=== PATIENT | male | born 1960 | race Hispanic/Latino ===

== ENCOUNTER 2019-03-02 15:17 | Emergency (ER) | payer OTHER ==
[2019-03-02 16:42] LABS: BASOPHILS % (AUTO) 0.6 % (0.0-5.0); EOSINOPHILS % (AUTO) 3.4 % (0.0-8.0); HEMATOCRIT 28.9 % (42-54); LYMPHOCYTES % (AUTO) 23.5 % (21.0-51.0); MEAN CORPUSCULAR HEMOGLOBIN 29.5 pg (27.0-33.0); MEAN CORPUSCULAR HGB CONC 33.9 g/dL (32.0-36.0); MEAN CORPUSCULAR VOLUME 86.9 fL (79-99); MONOCYTES % (AUTO) 6.2 % (3.0-13.0); NEUTROPHILS % (AUTO) 66.3 % (40.0-77.0); PLATELET COUNT (AUTO) 181 K/uL (130-400); RED BLOOD CELL COUNT(AUTO) 3.32 MIL/uL (4.50-6.20); RED CELL DISTRIBUTION WIDTH 15.1 % (11.0-15.5); WHITE BLOOD COUNT (AUTO) 7.9 K/uL (4.8-10.8)
[2019-03-02 16:43] LABS: APPEARANCE,URINE CLEAR (CLEAR); BILIRUBIN,URINE NEGATIVE (NEGATIVE); COLOR,URINE YELLOW (YELLOW); GLUCOSE, URINE (UA) NEGATIVE (NEGATIVE); KETONES,URINE NEGATIVE (NEGATIVE); LEUKOCYTE ESTERASE ,URINE NEGATIVE (NEGATIVE); NITRATE,URINE NEGATIVE (NEGATIVE); OCCULT BLOOD,URINE TRACE-INTACT (NEGATIVE); PROTEIN,URINE 100 mg/dL (NEGATIVE); UROBILINOGEN,URINE 0.2 mg/dL (0.2-1.0)
[2019-03-02 16:53] LABS: RBC,URINE 0-1 /HPF (0-1); WBC,URINE 0-1 /HPF (0-1)
[2019-03-02 16:54] LABS: BACTERIA,URINE Few /HPF (None Seen); SQUAMOUS EPITHELIAL CELL,UR Rare /HPF (0-2)
[2019-03-02 16:58] LABS: ALBUMIN 3.9 g/dL (3.5-5.0); BILIRUBIN,TOTAL 0.4 mg/dL (0.2-1.0); TOTAL PROTEIN, SERUM 6.9 g/dL (6.0-8.3)
== END 2019-03-02 19:28 | disposition home or self-care (01) ==
LOC: EDH 15:17
DX: R42 Dizziness and giddiness (principal); R11.0 Nausea
CPT/HCPCS: 36415; 80053; 81001; 82550; 83690; 84484; 85025; 93005

== ENCOUNTER 2019-03-14 17:46 | Emergency (ER) | payer OTHER, MEDICARE ==
[2019-03-14] MEDS ORDERED: ACETAMINOPHEN EXTRA STRENGTH 500 MG TABLET ONE (18:05)
== END 2019-03-14 19:47 | disposition home or self-care (01) ==
LOC: EDH 17:46
DX: S53.402A Unspecified sprain of left elbow, initial encounter (principal); I10 Essential (primary) hypertension; W22.8XXA Striking against or struck by other objects, initial encounter; Y93.89 Activity, other specified; Y92.810 Car as the place of occurrence of the external cause; Y99.8 Other external cause status
CPT/HCPCS: 73080; 99282

== ENCOUNTER 2019-04-26 05:55 | Day surgery (SDC) | payer OTHER ==
[2019-04-26] VITALS (7 sets, daily range): BP systolic 99–125; BP diastolic 54–80
[~2019-04-26] VITALS: Ht 167.6 cm; Wt 81.2 kg
[~2019-04-26 05:55] MED LIST: SODIUM CHLORIDE 0.9% 1000ML 1,000 ML IV ONE
[2019-04-26] MEDS ORDERED: AMLO10TA7 PO (06:58)
[2019-04-26] MEDS ORDERED: FOLI1TAB35 PO (06:58)
[2019-04-26] MEDS ORDERED: VITA400C70 PO (06:58)
[2019-04-26] MEDS ORDERED: FERS325 PO (06:58)
[2019-04-26] MEDS ORDERED: SODI650T PO (06:58)
[2019-04-26] MEDS ORDERED: METO-391 PO (06:58)
[2019-04-26] MEDS ORDERED: CHOL100046 PO (06:58)
[2019-04-26] MEDS ORDERED: CALC0.253 PO (06:58)
[2019-04-26] MEDS ORDERED: PROPOFOL 10 MG/ML 20ML VIAL IV ONE (07:08)
== END 2019-04-26 08:45 | disposition home or self-care (01) ==
LOC: ENDO 05:55 → DAH 05:55 → ENDO 08:45
PROVIDERS: ATTEND Internal Medicine Gastroenterology
DX: Z12.11 Encounter for screening for malignant neoplasm of colon (principal); D12.5 Benign neoplasm of sigmoid colon; D12.8 Benign neoplasm of rectum; I12.0 Hypertensive chronic kidney disease with stage 5 chronic kidney disease or end stage renal disease; K57.30 Diverticulosis of large intestine without perforation or abscess without bleeding; K63.89 Other specified diseases of intestine; Z86.010 Personal history of colon polyps; N18.6 End stage renal disease; K64.9 Unspecified hemorrhoids; Z80.0 Family history of malignant neoplasm of digestive organs; Z98.890 Other specified postprocedural states; Z79.899 Other long term (current) drug therapy
CPT/HCPCS: 45380; 45385; 88305; A4606; J2704; J7030

== ENCOUNTER 2020-02-07 17:10 | Emergency (ER) | payer OTHER ==
[~2020-02-07 17:10] MED LIST changes: +AMLO10TA7 PO; +CALC0.253 PO; +CHOL100046 PO; +FERS325 PO; +FOLI1TAB35 PO; +METO-391 PO; +SODI650T PO; -SODIUM CHLORIDE 0.9% 1000ML 1,000 ML IV ONE; +VITA-164 PO
[2020-02-08] MEDS ORDERED: FOLI1TAB35 PO (21:01)
[2020-02-08] MEDS ORDERED: FERR325T22 PO (21:01)
[2020-02-08] MEDS ORDERED: CALC667C10 PO (21:01)
== END 2020-02-07 17:19 | disposition left against medical advice (07) ==
LOC: EDH 17:10
DX: Z53.29 Procedure and treatment not carried out because of patient's decision for other reasons (principal); I10 Essential (primary) hypertension

== ENCOUNTER 2020-02-07 17:33 | Emergency (ER) | payer OTHER ==
[~2020-02-07] VITALS: Ht 172.7 cm; Wt 80.3 kg
[2020-02-08] MEDS ORDERED: CALC667C10 PO (21:01)
[2020-02-08] MEDS ORDERED: FERR325T22 PO (21:01)
[2020-02-08] MEDS ORDERED: FOLI1TAB35 PO (21:01)
== END 2020-02-07 20:30 | disposition left against medical advice (07) ==
LOC: EDH 17:33 → EDHIP 17:34 → UNDOADMIN 17:34 → EDH 20:30
DX: I12.0 Hypertensive chronic kidney disease with stage 5 chronic kidney disease or end stage renal disease (principal); N18.6 End stage renal disease; Z53.29 Procedure and treatment not carried out because of patient's decision for other reasons

== ENCOUNTER 2020-02-08 12:26 | Inpatient (IN) | payer OTHER ==
[~2020-02-08] VITALS: Ht 167.6 cm; Wt 76.7 kg
[2020-02-08 14:46] LABS: BASOPHILS % (AUTO) 0.5 % (0.0-5.0); EOSINOPHILS % (AUTO) 3.9 % (0.0-8.0); HEMATOCRIT 28.8 % (42-54); LYMPHOCYTES % (AUTO) 17.7 % (21.0-51.0); MEAN CORPUSCULAR HEMOGLOBIN 27.4 pg (27.0-33.0); MEAN CORPUSCULAR HGB CONC 32.3 g/dL (32.0-36.0); NEUTROPHILS % (AUTO) 70.5 % (40.0-77.0); PLATELET COUNT (AUTO) 201 K/uL (130-400); RED BLOOD CELL COUNT(AUTO) 3.39 MIL/uL (4.50-6.20); RED CELL DISTRIBUTION WIDTH 16.6 % (11.0-15.5); WHITE BLOOD COUNT (AUTO) 8.5 K/uL (4.8-10.8)
[2020-02-08 15:38] LABS: HEMOGLOBIN A1C 5.4 % (4.0-6.0)
[2020-02-08 15:54] LABS: ALBUMIN 4.2 g/dL (3.5-5.0); BILIRUBIN,TOTAL 0.5 mg/dL (0.2-1.0); POTASSIUM 4.7 mmol/L (3.5-5.1); TOTAL PROTEIN, SERUM 7.7 g/dL (6.0-8.3)
[2020-02-08 15:57] LABS: CREATININE 17.7 mg/dL (0.5-1.5)
[2020-02-08 18:31] VITALS: BP 149/78
[2020-02-08 18:33] LABS: HEMATOCRIT 25.5 % (42-54)
[2020-02-08 18:42] LABS: HEMOGLOBIN A1C 5.5 % (4.0-6.0)
[2020-02-08 18:49] LABS: ALBUMIN 3.8 g/dL (3.5-5.0)
[2020-02-08 19:01] LABS: CREATININE 14.2 mg/dL (0.5-1.5)
[2020-02-08 19:10] LABS: % IRON SATURATION 17.9 % (30-44)
--- NOTE | 2020-02-08 19:57 | NUR ---
DIRECT ADMIT FOR SERVICES DR. VILLA FOR HEMO-DIALYSIS. CONSENT SIGNED AND DIALYSIS NURSE NOTIFIED.
[2020-02-08 20:48] VITALS: BP 127/83
[2020-02-08] MEDS ORDERED: FERR325T22 PO (21:01)
[2020-02-08] MEDS ORDERED: CALC667C10 PO (21:01)
[2020-02-08] MEDS ORDERED: FOLI1TAB35 PO (21:01)
[2020-02-08 23:59] VITALS: BP 146/75
[2020-02-09 04:18] VITALS: BP 142/81
[2020-02-09 07:00] VITALS: BP 131/85
[2020-02-09 11:00] VITALS: BP 124/75
--- NOTE | 2020-02-09 12:16 | NUR ---
CM NOTE/IA/DALE [facility] MEET WITH PATIENT IN ROOM. PER PATIENT IS INDEPENDENT WITH ADLS, LIVES WITH MOTHER, NO DME OR HOME HEALTH IN USE, DRIVES AND FEELS SAFE TO RETURN HOME ONCE DISCHARGED FROM HOSPITAL. PATIENT MADE AWARE OF NEW DIALYSIS SET UP, DALE COMPLETED FOR RENAL [facility] OFFICE. CM TO FOLLOW UP ACCORDINGLY. Addendum: 02/09/20 at 1219 by MIKE ANGELES RN CM Amended: Links added.
--- NOTE | 2020-02-09 13:34 | NUR ---
CM NOTE FISTULA REPORT REQUESTED FROM JUAN CARLOS, REQUEST SENT OUT TODAY. PRIMARY NURSE, DAVIDE VAIL, AWARE OF PENDING REPORT. CLINICAL PACKET FAXED TO [facility], PENDING 3RD DIALYSIS, HEP B AND C PANEL, AND FISTULA REPORT FROM SHERRIE RANGEL TO FAX THESE WHEN AVAILABLE.
[2020-02-09 16:00] VITALS: BP 125/68
[2020-02-09] MEDS ORDERED: COMPOUND IV MISC 1 EACH IVSOLN MISC PRN (16:45)
[2020-02-09] MEDS: CALCIUM ACETATE 667 MG CAPSULE PO SCH (17:55)
--- NOTE | 2020-02-09 19:45 | NUR ---
PM Assessment Received pt comfortably watching TV, routine assessment done, plan of care discuss, confirm awareness for another dialysis session tomorrow.
[2020-02-09 19:53] VITALS: BP 146/74
[2020-02-09 23:55] VITALS: BP 152/82
[2020-02-10 03:42] LABS: BASOPHILS % (AUTO) 0.4 % (0.0-5.0); EOSINOPHILS % (AUTO) 3.3 % (0.0-8.0); HEMATOCRIT 24.6 % (42-54); LYMPHOCYTES % (AUTO) 18.5 % (21.0-51.0); MEAN CORPUSCULAR HEMOGLOBIN 26.8 pg (27.0-33.0); MEAN CORPUSCULAR HGB CONC 31.7 g/dL (32.0-36.0); MEAN CORPUSCULAR VOLUME 84.5 fL (79-99); MONOCYTES % (AUTO) 9.7 % (3.0-13.0); PLATELET COUNT (AUTO) 135 K/uL (130-400); RED BLOOD CELL COUNT(AUTO) 2.91 MIL/uL (4.50-6.20); RED CELL DISTRIBUTION WIDTH 16.1 % (11.0-15.5); WHITE BLOOD COUNT (AUTO) 7.2 K/uL (4.8-10.8)
[2020-02-10 03:52] VITALS: BP 135/73
[2020-02-10 04:09] LABS: PHOSPHORUS 6.9 mg/dL (2.5-4.9); POTASSIUM 3.8 mmol/L (3.5-5.1)
[2020-02-10 04:17] LABS: CREATININE 12.9 mg/dL (0.5-1.5)
[2020-02-10 07:14] LABS: HEPATITIS Bs ANTIGEN SCREEN P Negative (Negative)
[2020-02-10 07:30] VITALS: BP 150/89
[2020-02-10] MEDS: **HM**(Cholecalciferol (Vitamin D3) (Vitamin D) 1,000 UNIT PO SCH (09:00)
[2020-02-10] MEDS: CALCIUM ACETATE 667 MG CAPSULE PO SCH ×3 (09:08→16:31)
[2020-02-10] MEDS: VITAMIN E 400 UNIT CAPSULE PO SCH (09:08)
[2020-02-10] MEDS: FOLIC ACID/VITAMIN B COMP W-C 1 CAP TAB PO SCH (09:08)
[2020-02-10] MEDS: IRON SUCROSE COMPLEX 100 MG in SODIUM CHLORIDE 0.9% 50 ML IV SCH (09:08)
[2020-02-10] MEDS ORDERED: ACETAMINOPHEN 325 MG TAB PO PRN (09:30)
[2020-02-10 11:30] VITALS: BP 121/80
[2020-02-10 15:30] VITALS: BP 137/80
[2020-02-10 19:59] VITALS: BP 141/80
[2020-02-10] MEDS ORDERED: EPOETIN ALFA 10,000 UNIT/ML VIAL SQ SCH (21:00)
[2020-02-10 23:47] VITALS: BP 130/66
[2020-02-11 03:42] VITALS: BP 115/70
[2020-02-11 07:21] VITALS: BP 130/70
[2020-02-11] MEDS: FOLIC ACID/VITAMIN B COMP W-C 1 CAP TAB PO SCH (07:45)
[2020-02-11] MEDS: VITAMIN E 400 UNIT CAPSULE PO SCH (07:45)
[2020-02-11] MEDS: CALCIUM ACETATE 667 MG CAPSULE PO SCH ×3 (07:45→16:25)
[2020-02-11] MEDS: IRON SUCROSE COMPLEX 100 MG in SODIUM CHLORIDE 0.9% 50 ML IV SCH (07:47)
[2020-02-11] MEDS: **HM**(Cholecalciferol (Vitamin D3) (Vitamin D) 1,000 UNIT PO SCH (07:47)
--- NOTE | 2020-02-11 11:14 | NUR ---
RESTING IN BED WITH EYES CLOSED, RESP.'S EVEN AND UNLABORED. HOB AT 10 DEGREES. CALL LIGHT WITHIN REACH. BED LOW, SIDE RAILS UP X2.
[2020-02-11 11:30] VITALS: BP 141/66
[2020-02-11 15:30] VITALS: BP 146/79
--- NOTE | 2020-02-11 16:05 | NUR ---
DR. VILLA IN ROOM SPEAKING WITH PT. RE:PLAN OF CARE INCLUDING HD TOMORROW; PT. VERBALIZED UNDERSTANDING.
[2020-02-11 19:52] VITALS: BP 148/76
[2020-02-11 23:14] VITALS: BP 143/62
[2020-02-12 03:42] VITALS: BP 134/72
[2020-02-12 04:11] LABS: HEMATOCRIT 25.2 % (42-54); MEAN CORPUSCULAR HEMOGLOBIN 27.2 pg (27.0-33.0); MEAN CORPUSCULAR HGB CONC 31.3 g/dL (32.0-36.0); MEAN CORPUSCULAR VOLUME 86.9 fL (79-99); RED BLOOD CELL COUNT(AUTO) 2.9 MIL/uL (4.50-6.20); RED CELL DISTRIBUTION WIDTH 15.9 % (11.0-15.5); WHITE BLOOD COUNT (AUTO) 7.3 K/uL (4.8-10.8)
[2020-02-12 04:25] LABS: POTASSIUM 4.4 mmol/L (3.5-5.1)
[2020-02-12 04:31] LABS: CREATININE 11.4 mg/dL (0.5-1.5)
[2020-02-12] MEDS: **HM**(Cholecalciferol (Vitamin D3) (Vitamin D) 1,000 UNIT PO SCH (07:41)
[2020-02-12] MEDS: CALCIUM ACETATE 667 MG CAPSULE PO SCH ×3 (08:26→16:34)
[2020-02-12] MEDS: VITAMIN E 400 UNIT CAPSULE PO SCH (08:26)
[2020-02-12] MEDS: FOLIC ACID/VITAMIN B COMP W-C 1 CAP TAB PO SCH (08:26)
[2020-02-12] MEDS: IRON SUCROSE COMPLEX 100 MG in SODIUM CHLORIDE 0.9% 50 ML IV SCH (08:26)
--- NOTE | 2020-02-12 08:30 | NUR ---
AM ASSESSMENT PT AWAKE AND ORIENTED, DENIES CHEST PAIN OR DISCOMFORT, NO SOB OR LABORED RESPIRATIONS.
[2020-02-12 08:35] VITALS: BP 127/82
--- NOTE | 2020-02-12 10:00 | NUR ---
HD PT IN ROOM, HEMODIALYSIS TREATMENT IN PROGRESS, TOLERATING WELL. DIALYSIS NURSE AT BEDSIDE.
--- NOTE | 2020-02-12 11:25 | NUR ---
CM NOTE/PENDING [facility] CHAIR/TIME PER [facility], DID NOT RECEIVE HEP B AND C PANEL, REFAXED THIS AM WITH CONFIRMATION RECEIPT. PENDING 3RD DIALYSIS TREATMENT, OBTAINING WE SPEAK, WILL FAX TO DIALYSIS CENTER WHEN AVAILABLE. PER JUAN CARLOS, PATIENT DID NOT HAVE FISTULA IN MAY WITH THEM. MEET WITH PATIENT IN ROOM, PER PATIENT, FORGOT THAT JUAN CARLOS DIDNT DO IT AND WAS ACTUALLY DONE AT [facility]. REQUEST FOR RECORDS FAXED TO [facility], PENDING RETURN FAX WITH FISTULA RECORDS. CM TO FOLLOW UP ACCORDINGLY.
[2020-02-12] MEDS ORDERED: EPOETIN ALFA 10,000 UNIT/ML VIAL IV SCH (12:00)
[2020-02-12 12:58] VITALS: BP 145/183
--- NOTE | 2020-02-12 14:36 | NUR ---
NUTRITION EDUCATION CONOR provided Renal Dialysis Nutrition education with handouts and reference materials. CONOR reviewed handouts with Pt. Pt with no questions at time of education. CONOR encouraged Pt to notify as concerns arise. Pt verbalized understanding. Addendum: 02/12/20 at [address] Amended: Links added.
--- NOTE | 2020-02-12 17:06 | NUR ---
CM NOTE/REQUEST FROM [place] RECEIVED/PENDING [facility] DIALYSIS CHAIR/TIME REQUEST FOR MEDICAL RECORDS: FISTULA OPERATIVE REPORT RECEIVED AND FAXED TO [facility] WITH ORDER FOR HEMODIALYSIS REQUESTED. PENDING DIALYSIS CHAIR/TIME. CM TO FOLLOW UP ACCORDINGLY.
[2020-02-12 18:21] VITALS: BP 140/80
[2020-02-12 20:32] VITALS: BP 115/49
[2020-02-12 23:59] VITALS: BP_SYST 129; BP_SYST 163; BP_DIAS 76; BP_DIAS 81
[2020-02-13 03:42] LABS: HEMATOCRIT 24.9 % (42-54); MEAN CORPUSCULAR HGB CONC 30.9 g/dL (32.0-36.0); MEAN CORPUSCULAR VOLUME 87.4 fL (79-99); PLATELET COUNT (AUTO) 121 K/uL (130-400); RED BLOOD CELL COUNT(AUTO) 2.85 MIL/uL (4.50-6.20); RED CELL DISTRIBUTION WIDTH 15.2 % (11.0-15.5); WHITE BLOOD COUNT (AUTO) 5.7 K/uL (4.8-10.8)
[2020-02-13 03:58] VITALS: BP 104/56
[2020-02-13 04:02] LABS: PHOSPHORUS 4.3 mg/dL (2.5-4.9); POTASSIUM 4.2 mmol/L (3.5-5.1)
[2020-02-13 04:28] LABS: CREATININE 8.6 mg/dL (0.5-1.5)
[2020-02-13 08:16] VITALS: BP 124/71
[2020-02-13] MEDS: CALCIUM ACETATE 667 MG CAPSULE PO SCH (09:00)
[2020-02-13] MEDS: **HM**(Cholecalciferol (Vitamin D3) (Vitamin D) 1,000 UNIT PO SCH (09:00)
--- NOTE | 2020-02-13 09:00 | NUR ---
CM NOTE/[facility] APPROVED PER [facility], APPROVED FOR CHAIR TIME/DATE 02/14/2020 AT 3:15PM. PATIENT MADE AWARE, VERBALIZED UNDERSTANDING. PRIMARY NURSE, EZEQUIEL VAIL, MADE AWARE.
[2020-02-13] MEDS: FOLIC ACID/VITAMIN B COMP W-C 1 CAP TAB PO SCH (10:01)
[2020-02-13] MEDS: IRON SUCROSE COMPLEX 100 MG in SODIUM CHLORIDE 0.9% 50 ML IV SCH (10:01)
[2020-02-13] MEDS: VITAMIN E 400 UNIT CAPSULE PO SCH (10:02)
[2020-02-13 11:45] VITALS: BP 126/73
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
== END 2020-02-13 15:30 | disposition home or self-care (01) | DRG 640 ==
LOC: EDH 12:26 → OBSVTOIN 12:47 → EDHIP 12:47 → 4CH 16:45 → 4BH 02-10 18:37 → 4CH 02-12 08:42
PROVIDERS: ADMIT Internal Medicine Nephrology; ATTEND Internal Medicine Nephrology
PROC: 5A1D70Z Performance of Urinary Filtration, Intermittent, Less than 6 Hours Per Day (ICD-10-PCS; principal; 2020-02-08)
PROC: 5A1D70Z Performance of Urinary Filtration, Intermittent, Less than 6 Hours Per Day (ICD-10-PCS; 2020-02-09)
PROC: 5A1D70Z Performance of Urinary Filtration, Intermittent, Less than 6 Hours Per Day (ICD-10-PCS; 2020-02-10)
PROC: 5A1D70Z Performance of Urinary Filtration, Intermittent, Less than 6 Hours Per Day (ICD-10-PCS; 2020-02-12)
DX: E87.70 Fluid overload, unspecified (principal); N18.6 End stage renal disease; I12.0 Hypertensive chronic kidney disease with stage 5 chronic kidney disease or end stage renal disease; N25.81 Secondary hyperparathyroidism of renal origin; E83.39 Other disorders of phosphorus metabolism; E87.2 Acidosis; E87.5 Hyperkalemia; I10 Essential (primary) hypertension; E78.5 Hyperlipidemia, unspecified; D64.9 Anemia, unspecified; I48.91 Unspecified atrial fibrillation; N40.0 Benign prostatic hyperplasia without lower urinary tract symptoms; Z91.15 Patient's noncompliance with renal dialysis; Z87.19 Personal history of other diseases of the digestive system; Z82.49 Family history of ischemic heart disease and other diseases of the circulatory system
CPT/HCPCS: 36415; 71045; 80048; 80053; 80061; 82040; 82565; 82728; 83036; 83540; 83550; 84100; 84520; 85014; 85018; 85025; 85027; 86701; 86704; 86706; 87340; 87390; 87520; 90935; 93005; G0378; J0885; J1756

== ENCOUNTER 2020-02-18 21:34 | Emergency (ER) | payer OTHER ==
[2020-02-18] MEDS ORDERED: ACETAMINOPHEN EXTRA STRENGTH 500 MG TABLET ONE (22:09)
[2020-02-18] MEDS ORDERED: ALBUTEROL INHALER 90MCG/INH IH ONE (23:16)
[2020-02-18] MEDS ORDERED: AZITHROMYCIN 250 MG TABLET PO ONE (23:17)
== END 2020-02-18 23:28 | disposition home or self-care (01) ==
LOC: EDH 21:34
DX: U07.1 COVID-19 (principal); R05 Cough; R50.9 Fever, unspecified; I12.0 Hypertensive chronic kidney disease with stage 5 chronic kidney disease or end stage renal disease; N18.6 End stage renal disease; Z99.2 Dependence on renal dialysis
CPT/HCPCS: 36415; 71045; 80053; 81001; 82550; 82728; 83605; 84145; 84484; 85025; 85378; 85610; 85730; 86140; 87040 ×2; 87804 ×2; 87880; 93005; 99284; U0003

== ENCOUNTER 2020-03-11 12:44 | Inpatient (IN) | payer OTHER ==
[~2020-03-11] VITALS: Ht 167.6 cm; Wt 69.2 kg
[~2020-03-11 12:44] MED LIST changes: -CALC0.253 PO; +CALC667C10 PO; -FERS325 PO; -SODI650T PO
[2020-03-11 13:31] LABS: BASOPHILS % (AUTO) 0.5 % (0.0-5.0); EOSINOPHILS % (AUTO) 5.2 % (0.0-8.0); HEMATOCRIT 21.4 % (42-54); LYMPHOCYTES % (AUTO) 23.1 % (21.0-51.0); MEAN CORPUSCULAR HEMOGLOBIN 28.5 pg (27.0-33.0); MEAN CORPUSCULAR HGB CONC 30.4 g/dL (32.0-36.0); MEAN CORPUSCULAR VOLUME 93.9 fL (79-99); MONOCYTES % (AUTO) 9.2 % (3.0-13.0); NEUTROPHILS % (AUTO) 61.4 % (40.0-77.0); NUCLEATED RED BLOOD CELLS 0.6 % (0.0-0.19); PLATELET COUNT (AUTO) 162 K/uL (130-400); RED BLOOD CELL COUNT(AUTO) 2.28 MIL/uL (4.50-6.20); WHITE BLOOD COUNT (AUTO) 6.5 K/uL (4.8-10.8)
[2020-03-11 14:03] LABS: ALBUMIN 3.2 g/dL (3.5-5.0); BILIRUBIN,TOTAL 0.3 mg/dL (0.2-1.0); TOTAL PROTEIN, SERUM 6.8 g/dL (6.0-8.3)
[2020-03-11 14:05] LABS: INR 0.99 (0.85-1.15); PARTIAL THROMBOPLASTIN TIME 23.8 SEC (26.3-35.5); PROTHROMBIN TIME 10.7 SEC (9.6-11.6)
[2020-03-11 14:06] LABS: CREATININE 11.4 mg/dL (0.5-1.5)
[2020-03-12] VITALS (20 sets, daily range): BP systolic 91–136; BP diastolic 47–74
[2020-03-12] MEDS ORDERED: ONDANSETRON HCL 4 MG/2 ML VIAL IVP PRN (02:15)
[2020-03-12] MEDS ORDERED: ACET-3194 PO (03:20)
[2020-03-12] MEDS ORDERED: [UNRECOGNIZED DRUG - CODE] IVP (03:20)
[2020-03-12] MEDS ORDERED: METH200S IJ (03:20)
[2020-03-12 07:00] LABS: BASOPHILS % (AUTO) 0.6 % (0.0-5.0); EOSINOPHILS % (AUTO) 5.4 % (0.0-8.0); HEMATOCRIT 25.4 % (42-54); LYMPHOCYTES % (AUTO) 21.8 % (21.0-51.0); MEAN CORPUSCULAR HEMOGLOBIN 28.7 pg (27.0-33.0); MEAN CORPUSCULAR HGB CONC 31.9 g/dL (32.0-36.0); MEAN CORPUSCULAR VOLUME 90.1 fL (79-99); MONOCYTES % (AUTO) 11.8 % (3.0-13.0); NEUTROPHILS % (AUTO) 59.9 % (40.0-77.0); PLATELET COUNT (AUTO) 148 K/uL (130-400); RED BLOOD CELL COUNT(AUTO) 2.82 MIL/uL (4.50-6.20); RED CELL DISTRIBUTION WIDTH 15.2 % (11.0-15.5); WHITE BLOOD COUNT (AUTO) 6.3 K/uL (4.8-10.8)
[2020-03-12 07:19] LABS: ALBUMIN 3.1 g/dL (3.5-5.0); BILIRUBIN,TOTAL 0.5 mg/dL (0.2-1.0); CREATININE 7.4 mg/dL (0.5-1.5); MAGNESIUM 2.2 mg/dL (1.80-2.40); PHOSPHORUS 3.8 mg/dL (2.5-4.9); POTASSIUM 3.2 mmol/L (3.5-5.1); TOTAL PROTEIN, SERUM 6.8 g/dL (6.0-8.3)
--- NOTE | 2020-03-12 07:42 | NUR ---
PATIENT UPDATE Pt kept npo post mn, pt going for EGD with MAC under Dr. Aranza Carr. No bleeding episodes overnight, vital signs stable. Pt showered, consent secured. No complaints voiced out.
[2020-03-12] MEDS ORDERED: LIDOCAINE HCL 1% 20 ML VIAL ONE (07:58)
[2020-03-12] MEDS ORDERED: PROPOFOL 10 MG/ML 20ML VIAL IV ONE (07:58)
[2020-03-12] MEDS ORDERED: MIDAZOLAM HCL 1 MG/ML 2ML VIAL ONE (07:58)
[2020-03-12] MEDS: PANTOPRAZOLE 40 MG/VIAL IVP SCH (10:49)
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
--- NOTE | 2020-03-12 13:07 | NUR ---
DCP CM spoke to pt discussed dc plans. Pt is independent prior to admission, lives at home w/mother. Pt goes to [facility] @ 6:3opm, drives self. Denies any other equipments/services. Feels safe to go back home, arranges own needs and still drives, spouse able to assist with transportation as necessary. DC plan to home once stable. CM to cont to follow up. Addendum: 03/12/20 at 1308 by MAXWELL QUINTANILLA LVN CM Amended: Links added.
--- NOTE | 2020-03-12 18:01 | NUR ---
GI paged again regarding consult for colonoscopy
--- NOTE | 2020-03-12 18:15 | NUR ---
DR DESOUZA CALLED AND SAID HE WOULD SEE PT. AND DO COLONOSCOPY OUT PATIENT. TO FOLLOW UP WITH HIM 1 WEEK AFTER DISCHARGE. GAVE HIM INFO. RE:HGB/HCT VALUES .
[2020-03-13 01:01] VITALS: BP 123/71
[2020-03-13 04:16] VITALS: BP 103/63
[2020-03-13 06:55] LABS: BASOPHILS % (AUTO) 0.8 % (0.0-5.0); EOSINOPHILS % (AUTO) 5.1 % (0.0-8.0); HEMATOCRIT 26.3 % (42-54); LYMPHOCYTES % (AUTO) 25.6 % (21.0-51.0); MEAN CORPUSCULAR HEMOGLOBIN 28.8 pg (27.0-33.0); MEAN CORPUSCULAR HGB CONC 31.2 g/dL (32.0-36.0); MEAN CORPUSCULAR VOLUME 92.3 fL (79-99); MONOCYTES % (AUTO) 13.8 % (3.0-13.0); NEUTROPHILS % (AUTO) 53.9 % (40.0-77.0); NUCLEATED RED BLOOD CELLS 1.5 % (0.0-0.19); PLATELET COUNT (AUTO) 157 K/uL (130-400); RED BLOOD CELL COUNT(AUTO) 2.85 MIL/uL (4.50-6.20); RED CELL DISTRIBUTION WIDTH 15.8 % (11.0-15.5)
[2020-03-13 07:03] LABS: POTASSIUM 3.7 mmol/L (3.5-5.1)
[2020-03-13 07:07] LABS: CREATININE 10.1 mg/dL (0.5-1.5)
[2020-03-13 07:45] VITALS: BP 123/68
[2020-03-13] MEDS: PANTOPRAZOLE 40 MG/VIAL IVP SCH (09:54)
[2020-03-13 11:28] VITALS: BP 125/79
[2020-03-13] MEDS ORDERED: PANT40TA25 PO (13:17)
--- NOTE | 2020-03-13 14:37 | NUR ---
Currently have HD tx; preparing pt for discharge
--- NOTE | 2020-03-13 17:02 | NUR ---
pt complete with HD now. Preparing pt for discharge
--- NOTE | 2020-03-13 17:30 | NUR ---
Pt. S/L removed w/o difficulty or complication. Discharge instructions understood by pt. Discharged by w/c in good condition. Pt is going to drive himself home
== END 2020-03-13 17:25 | disposition home or self-care (01) | DRG 377 ==
LOC: EDH 12:44 → EDHIP 12:45 → 3DH 03-12 00:26
PROVIDERS: ADMIT Internal Medicine Nephrology; ATTEND Internal Medicine Nephrology
PROC: 5A1D70Z Performance of Urinary Filtration, Intermittent, Less than 6 Hours Per Day (ICD-10-PCS; 2020-03-11)
PROC: 30233N1 Transfusion of Nonautologous Red Blood Cells into Peripheral Vein, Percutaneous Approach (ICD-10-PCS; 2020-03-11)
PROC: 0DB68ZX Excision of Stomach, Via Natural or Artificial Opening Endoscopic, Diagnostic (ICD-10-PCS; principal; 2020-03-12)
PROC: 0DB98ZX Excision of Duodenum, Via Natural or Artificial Opening Endoscopic, Diagnostic (ICD-10-PCS; 2020-03-12)
PROC: 5A1D70Z Performance of Urinary Filtration, Intermittent, Less than 6 Hours Per Day (ICD-10-PCS; 2020-03-13)
DX: K29.71 Gastritis, unspecified, with bleeding (principal); N18.6 End stage renal disease; I12.0 Hypertensive chronic kidney disease with stage 5 chronic kidney disease or end stage renal disease; D64.9 Anemia, unspecified; Z99.2 Dependence on renal dialysis; I48.91 Unspecified atrial fibrillation; I48.0 Paroxysmal atrial fibrillation; Z87.19 Personal history of other diseases of the digestive system
CPT/HCPCS: 36415; 43239; 71045; 80048; 80053; 83735; 84100; 84484; 85025; 85610; 85730; 86850; 86900; 86901; 86922; 88305; 88342; 90935; 93005; C9113; G0378; J2250; J2704; J7030; P9016

== ENCOUNTER 2020-04-16 08:38 | Day surgery (SDC) | payer OTHER ==
[~2020-04-16] VITALS: Ht 167.6 cm; Wt 72.6 kg
[~2020-04-16 08:38] MED LIST changes: +ACET-3194 PO; +METH200S IJ; +PANT40TA25 PO; +SODIUM CHLORIDE 0.9% 1000ML 1,000 ML IV ONE; +[UNRECOGNIZED DRUG - CODE] IVP
[2020-04-16 10:20] VITALS: BP 131/75
[2020-04-16 10:36] LABS: POTASSIUM 5.3 mmol/L (3.5-5.1)
[2020-04-16 10:38] LABS: BASOPHILS % (AUTO) 1.2 % (0.0-5.0); EOSINOPHILS % (AUTO) 5.1 % (0.0-8.0); HEMATOCRIT 40.4 % (42-54); LYMPHOCYTES % (AUTO) 29.3 % (21.0-51.0); MEAN CORPUSCULAR HEMOGLOBIN 29.1 pg (27.0-33.0); MEAN CORPUSCULAR HGB CONC 30.9 g/dL (32.0-36.0); MEAN CORPUSCULAR VOLUME 94.2 fL (79-99); NEUTROPHILS % (AUTO) 55.9 % (40.0-77.0); PLATELET COUNT (AUTO) 179 K/uL (130-400); RED BLOOD CELL COUNT(AUTO) 4.29 MIL/uL (4.50-6.20); WHITE BLOOD COUNT (AUTO) 5.9 K/uL (4.8-10.8)
--- NOTE | 2020-04-16 10:41 | NUR ---
SPOKE TO AGUILAR MEJIA CRNA & DR CASAS IN REGARDS TO [facility]S PAT STATED THAT HE DID NOT GO TO DIALYSIS YESTERDAY BECAUSE OF PROCEDURE TODAY . LAST DIALYSIS WAS Wednesday04/12/20 . HE STATED THAT NO ONE HAD TOLD HIM NOT TO MISS DIALYSIS. DR CASAS SPOKE MR BRUSH AND EXPLAINED THE RISKS IN DOING PROCEDURE AND HIS LAB BEING ABN. DR CASAS WAS GOING TO CALL HER OFFICE TO SET UP DIALYSIS FOR TODAY AND RESCHEDULE COLONOSCOPY FOR ANOTHER DAY PER PT - (MR BRUSH) PT WAS DISCHARGED AND OFFICE WILL RESCHEDULE FOR NEXT WEEK
[2020-04-16 10:46] LABS: CREATININE 14.6 mg/dL (0.5-1.5)
== END 2020-04-16 11:00 | disposition home or self-care (01) ==
LOC: ENDO 08:38 → DAH 08:38 → ENDO 11:00
PROVIDERS: ATTEND Internal Medicine
DX: R19.5 Other fecal abnormalities (principal); D50.0 Iron deficiency anemia secondary to blood loss (chronic); I12.0 Hypertensive chronic kidney disease with stage 5 chronic kidney disease or end stage renal disease; N18.6 End stage renal disease; Z99.2 Dependence on renal dialysis; Z86.010 Personal history of colon polyps; Z80.0 Family history of malignant neoplasm of digestive organs; Z20.828 Contact with and (suspected) exposure to other viral communicable diseases; K64.9 Unspecified hemorrhoids; Z53.8 Procedure and treatment not carried out for other reasons
CPT/HCPCS: 36415; 80048; 85025; C9803; J7030; U0003

== ENCOUNTER 2020-04-23 07:15 | Day surgery (SDC) | payer OTHER ==
--- NOTE | 2020-04-19 13:17 | NUR ---
REPORT CALLED DR DESOUZA OFFICE AND INFORMED OF PT C/O SWELLING AND TOOTH ACHE TO MOLAR. PT HAS NOT SEEKED MEDICAL TREATMENT. PT WAS INSTRUCTED TO FOLLOW UP WITH DENTIST.. PT VOICED UNDERSTANDING
[~2020-04-23] VITALS: Ht 167.6 cm; Wt 72.6 kg
[2020-04-23] VITALS (9 sets, daily range): BP systolic 96–119; BP diastolic 36–75
[~2020-04-23 07:15] MED LIST changes: -ACET-3194 PO; -CHOL100046 PO; -FOLI1TAB35 PO; -METH200S IJ; -METO-391 PO; -PANT40TA25 PO; +PANT40TA55 PO; -[UNRECOGNIZED DRUG - CODE] IVP
[2020-04-23 07:49] LABS: BASOPHILS % (AUTO) 0.8 % (0.0-5.0); EOSINOPHILS % (AUTO) 5.6 % (0.0-8.0); HEMATOCRIT 43.8 % (42-54); MEAN CORPUSCULAR HEMOGLOBIN 28.8 pg (27.0-33.0); MEAN CORPUSCULAR HGB CONC 31.3 g/dL (32.0-36.0); MEAN CORPUSCULAR VOLUME 92.2 fL (79-99); MONOCYTES % (AUTO) 8.4 % (3.0-13.0); NEUTROPHILS % (AUTO) 52.1 % (40.0-77.0); PLATELET COUNT (AUTO) 207 K/uL (130-400); RED BLOOD CELL COUNT(AUTO) 4.75 MIL/uL (4.50-6.20); RED CELL DISTRIBUTION WIDTH 14.1 % (11.0-15.5); WHITE BLOOD COUNT (AUTO) 7.3 K/uL (4.8-10.8)
[2020-04-23] MEDS ORDERED: IRON-23 PO (07:49)
[2020-04-23 07:58] LABS: CREATININE 7.8 mg/dL (0.5-1.5); POTASSIUM 3.4 mmol/L (3.5-5.1)
== END 2020-04-23 10:20 | disposition home or self-care (01) ==
LOC: DAH 07:15
PROVIDERS: ATTEND Internal Medicine Gastroenterology
DX: D50.0 Iron deficiency anemia secondary to blood loss (chronic) (principal); K63.5 Polyp of colon; K64.0 First degree hemorrhoids; I12.0 Hypertensive chronic kidney disease with stage 5 chronic kidney disease or end stage renal disease; N18.6 End stage renal disease; Z86.010 Personal history of colon polyps; Z80.0 Family history of malignant neoplasm of digestive organs; Z99.2 Dependence on renal dialysis; Z79.899 Other long term (current) drug therapy
CPT/HCPCS: 36415; 45385; 80048; 85025; A4215; A4221; A4222; A4223; A4606; A4615; A4663; J7030

== ENCOUNTER 2021-04-30 12:33 | Emergency (ER) | payer OTHER ==
[~2021-04-30] VITALS: Ht 167.6 cm; Wt 63.5 kg
[~2021-04-30 12:33] MED LIST changes: +AMLO-258 PO; -AMLO10TA7 PO; -CALC667C10 PO; +IRON-23 PO; -SODIUM CHLORIDE 0.9% 1000ML 1,000 ML IV ONE
[2021-04-30 12:34] VITALS: BP 131/79
[2021-04-30] MEDS ORDERED: CLINDAMYCIN IVPB 600MG/50ML 50 ML IV SCH (13:00)
[2021-04-30 13:35] LABS: RED BLOOD CELL COUNT(AUTO) 3.66 MIL/uL (4.50-6.20); WHITE BLOOD COUNT (AUTO) 9.9 K/uL (4.8-10.8)
[2021-04-30 13:36] LABS: BASOPHILS % (AUTO) 0.5 % (0.0-5.0); EOSINOPHILS % (AUTO) 1.8 % (0.0-8.0); LYMPHOCYTES % (AUTO) 17.8 % (21.0-51.0); MEAN CORPUSCULAR HGB CONC 31.2 g/dL (32.0-36.0); MEAN CORPUSCULAR VOLUME 92.9 fL (79-99); NEUTROPHILS % (AUTO) 71.6 % (40.0-77.0); PLATELET COUNT (AUTO) 184 K/uL (130-400); RED CELL DISTRIBUTION WIDTH 15.5 % (11.0-15.5)
[2021-04-30] MEDS ORDERED: 0.9%NACL 50ML 50 ML IV ONE (13:46)
[2021-04-30 13:49] LABS: ALBUMIN 3.4 g/dL (3.5-5.0); BILIRUBIN,TOTAL 0.5 mg/dL (0.2-1.0); CRP QUANTITATIVE 14.2 mg/L (0.00-9.0); POTASSIUM 5.4 mmol/L (3.5-5.1); TOTAL PROTEIN, SERUM 6.5 g/dL (6.0-8.3)
[2021-04-30 13:52] LABS: CREATININE 10.6 mg/dL (0.5-1.5)
[2021-04-30] MEDS ORDERED: ZOSYN 3.375GM+NS 50ML 50 ML IV SCH (14:00)
[2021-04-30] MEDS ORDERED: ZOSYN 3.375GM+NS 50ML 3.38 GM in 0.9%NACL 50ML 50 ML IV SCH (14:00)
== END 2021-04-30 14:39 | disposition left against medical advice (07) ==
LOC: EDH 12:33
DX: L02.31 Cutaneous abscess of buttock (principal); N18.6 End stage renal disease; Z99.2 Dependence on renal dialysis
CPT/HCPCS: 36415; 71045; 72192; 80053; 83605; 84484; 85025; 86140; 87040 ×2; 93005 ×2; 96365; 96368; 99284; J2543; J3490